=== PATIENT | male | born 1990 | race Hispanic/Latino ===

== ENCOUNTER → 2017-02-01 | Outpatient (CLI) | payer SELFPAY ==
--- NOTE | 2017-02-01 16:51 | Diagnostic Imaging Report ---
PROCEDURE: CT abdomen and pelvis without contrast. TECHNIQUE: Multiple contiguous axial images were obtained through the abdomen and pelvis without the use of intravenous contrast. INDICATION: Fever. Elevated diaphragm. COMPARISON: None. FINDINGS: There is a partially visualized moderate right pleural effusion and mild adjacent compressive atelectasis. Hyperattenuating contents in the gallbladder may be due to sludge, small gallstones, or recent contrast administration. The liver, pancreas, spleen, adrenals, kidneys, collecting systems, and bladder are unremarkable on this noncontrast exam. The appendix is not identified and may be surgically absent. No free intraperitoneal air or fluid. No lymphadenopathy. No evidence of bowel obstruction. The osseous structures are negative. IMPRESSION: 1. Partially visualized moderate right pleural effusion. There is mild adjacent compressive atelectasis. The visualized lung bases are otherwise clear. This could be further evaluated with a dedicated chest CT with IV contrast. 2. Hyperattenuating contents in the gallbladder may be due to sludge, small gallstones, or recent contrast administration. No secondary CT findings of acute cholecystitis. This could be better characterized with ultrasound, if clinically warranted. 3. No acute CT findings in the abdomen or pelvis on this noncontrast exam. 4. The findings were discussed with CAROLA Prince's nurse, Lauren, at 4:46 PM on 02/01/2017. Dictated by: Dictated on workstation # [id number]
== END ==
LOC: RAD 15:46
PROVIDERS: ATTEND Nurse Practitioner Family
DX: J90 Pleural effusion, not elsewhere classified (principal); K87 Disorders of gallbladder, biliary tract and pancreas in diseases classified elsewhere; R50.9 Fever, unspecified
CPT/HCPCS: 74176

== ENCOUNTER → 2017-02-02 | Outpatient (CLI) | payer SELFPAY ==
--- NOTE | 2017-02-02 14:52 | Diagnostic Imaging Report ---
INDICATION: Right upper quadrant pain, fever TECHNIQUE: Multiple grayscale sonographic images were obtained of the right upper quadrant of the abdomen. CORRELATION STUDY: None FINDINGS: LIVER: There is uniform echotexture within the visualized portions of the liver. Liver at 14 cm in length. GALLBLADDER: The gallbladder is present and demonstrates no definitive shadowing gallstones. No abnormal gallbladder wall thickening or pericholecystic fluid. COMMON BILE DUCT: Within normal limits at 4. PANCREAS: Visualized portions appearing unremarkable. RIGHT KIDNEY: Measures 9.5 cm. No hydronephrosis. OTHER: Right pleural effusion is noted. IMPRESSION: 1. Negative appearing right upper quadrant abdominal ultrasound. 2. Right pleural effusion is present. Dictated by: Dictated on workstation # [id number]
== END ==
LOC: RAD 14:22
PROVIDERS: ATTEND Nurse Practitioner Family
DX: J90 Pleural effusion, not elsewhere classified (principal); R10.11 Right upper quadrant pain; R50.9 Fever, unspecified
CPT/HCPCS: 76705